=== PATIENT | male | born 1960 | race Caucasian/White ===

== ENCOUNTER 2023-08-30 09:38 | Emergency (ER) | payer BC ==
[~2023-08-30] VITALS: Ht 190.5 cm; Wt 163.3 kg
[2023-08-30] MEDS ORDERED: PRD50T PO (09:48)
[2023-08-30] MEDS ORDERED: PENI500T PO (09:48)
[2023-08-30] MEDS ORDERED: ACYC400T21 PO (09:50)
--- NOTE | 2023-08-30 09:51 | ED General ---
General Stated Complaint: DENTAL PAIN/SWELLING Source of Information: Patient Exam Limitations: No Limitations History of Present Illness Date Seen by Provider: Aug 30, 2023 Time Seen by Provider: 09:39 Initial Comments 63-year-old male presents the emergency department today for left facial drooping and a broken tooth on the left lower jaw. He broke his tooth the left lower jaw on Wednesday while he was chewing. He started to have some swelling in the area after that. He noticed some facial drooping thereafter. He went to work today and his boss was concerned that he may have had a stroke which prompted his evaluation today. No upper or lower extremity weakness numbness or tingling. All other systems reviewed and negative except documented per HPI. Voice recognition software was used to help create this chart Allergies and Home Medications Patient Home Medication List Home Medication List Reviewed: Yes Acyclovir (Acyclovir) 400 Mg Tablet, 400 MG PO 5XD Prescribed by: VICKI GALAN MD on 08/30/23 0950 Penicillin V Potassium (Penicillin V Potassium) 500 Mg Tablet, 500 MG PO TID Prescribed by: VICKI GALAN MD on 08/30/23 0948 Prednisone (Prednisone) 50 Mg Tab, 50 MG PO DAILY Prescribed by: VICKI GALAN MD on 08/30/23 0948 Review of Systems Review of Systems Constitutional: see HPI Past [id number]-[id number]-Ezynss Hx Patient Social History Tobacco Use?: No Use of E-Cig and/or Vaping dev: No Substance use?: No Alcohol Use?: No Physical Exam Vital Signs Capillary Refill : Height, Weight, BMI Height: '" Weight: lbs. oz. kg; BMI Method: General Appearance: No Apparent Distress, WD/WN, Other (Tenderness palpation left lower jaw in the premolar region. There is a fractured tooth in this area. No palpable abscess.) Eyes: Left Eye Other (Left eyelid is drooping. Extraocular muscles are intact. Forehead muscles are weak on the left side) HEENT: PERRL/EOMI, TMs Normal, Pharynx Normal Neck: Normal Inspection, Supple Respiratory: Chest Non Tender, Lungs Clear, Normal Breath Sounds, No Accessory Muscle Use, No Respiratory Distress Cardiovascular: Regular Rate, Rhythm, No Murmur Gastrointestinal: Normal Bowel Sounds, No Organomegaly, Non Tender, Soft Extremity: Normal Capillary Refill, Normal Inspection, No Calf Tenderness Neurologic/Psychiatric: Alert, Oriented x3, Other (Left facial nerve palsy. O therwise cranial nerves are intact bilaterally. Normal strength, sensation bilateral upper and lower extremities) Skin: Normal Color, Warm/Dry Progress/Results/Core Measures Suspected Sepsis SIRS Temperature: Pulse: Respiratory Rate: Blood Pressure / Mean: Results/Orders Vital Signs/I&O Capillary Refill : Departure Communication (Admissions) Patient is hemodynamically stable. He has clear Fink palsy on exam. He is nontoxic in appearance and has a left lower dental abscess which likely prompted his current Fink's palsy. I do not think he has a systemic viral infection. There is no evidence of a stroke and no indication for CT scan at this time. He was treated conservatively with antibiotics for his dental abscess, antiviral medicine and steroids for Fink's palsy. He is advised to use artificial tears to the affected eye. He is hypertensive. He states he has not taken his blood pressure medication in 2 years by choice. Impression Primary Impression: Infected dental caries Additional Impression: Fink's palsy Disposition: 01 HOME, SELF-CARE Condition: Stable Departure-Patient Inst. Referrals: YIMI GOLDMAN MD (PCP/Family) Primary Care Physician Patient Instructions: Fink's Palsy (DC), Tooth Abscess (DC) Add. Discharge Instructions: You have a dental infection that is caused Fink's palsy. Please take the antibiotics, antiviral medicine and steroid medicine as prescribed until they are gone. You may want to consider artificial tears for your left eye as you will be able to blink effectively to moisturize the eye. Follow-up with a dentist at your earliest convenience. Return to the emergency department for any severe concerns. Scripts Acyclovir (Acyclovir) 400 Mg Tablet 400 MG PO 5XD for 10 Days, #50 TAB Prov: VICKI GALAN DO 08/30/23 Prednisone (Prednisone) 50 Mg Tab 50 MG PO DAILY for 5 Days, #5 TAB Prov: VICKI GALAN DO 08/30/23 Penicillin V Potassium (Penicillin V Potassium) 500 Mg Tablet 500 MG PO TID for 7 Days, #21 TAB Prov: VICKI GALAN DO 08/30/23 VICKI GALAN DO Aug 30, 2023 09:51
[2023-08-30 09:58] VITALS: BP 175/104
== END 2023-08-30 09:58 | disposition home or self-care (01) ==
LOC: EDUNIT# 09:38 → ER FS 09:40
DX: K02.9 Dental caries, unspecified (principal); G51.0 Bell's palsy; I10 Essential (primary) hypertension; T46.5X6A Underdosing of other antihypertensive drugs, initial encounter; Z91.128 Patient's intentional underdosing of medication regimen for other reason
CPT/HCPCS: 99281